=== PATIENT | female | born 1945 | race Caucasian/White ===

== ENCOUNTER → 2016-03-01 | Outpatient (CLI) | payer BC ==
[~2016-03-01] MED LIST: ASCO1CAP3 PO; BIOT1CAP3 PO; CALC-20 PO; CITA20TA9 PO; CLR10 PO; ESTR0.5T3 PO; ETOMIDATE 2 MG/ML 20 ML VIAL IV ONE; GLUC1CAP35 PO; LIDOCAINE HCL 2% 2 ML VIAL (20MG/ML) ONE; MULT-506 PO; PROPOFOL IV EMULSION 10 MG/ML 20 ML VIAL IV ONE; TIMO0.2534 OPR; TRAV0.00 OPB; TRAZ50TA35 PO; TURM1CAP4 PO; VITA400C15 PO
--- NOTE | 2016-03-01 15:53 | DIAGNOSTIC IMAGING REPORT ---
RIGHT HIP UNILATERAL 2 VIEWS CLINICAL HISTORY: Right hip pain COMPARISON: None. DISCUSSION: No acute fractures are visualized. There are no erosive or destructive changes. The joint space appears well-preserved for age. The bones are mildly osteopenic. There are sclerotic densities within the right inferior and superior pubic rami. In the absence of a known primary malignancy, these likely represent bone islands. IMPRESSION: 1. No acute fractures. 2. The joint space appears well-preserved for age Electronically signed by: Surjit Pimentel M.D. 03/01/2016 3:51 PM Dictated Date/Time: 03/01/2016 3:50 PM
== END | disposition home or self-care (01) ==
LOC: C.RAD 15:27
PROVIDERS: ATTEND Family Medicine
DX: M25.551 Pain in right hip (principal); G89.29 Other chronic pain

== ENCOUNTER → 2016-07-04 | Outpatient (CLI) | payer BC ==
[~2016-07-04] MED LIST changes: -ETOMIDATE 2 MG/ML 20 ML VIAL IV ONE; -LIDOCAINE HCL 2% 2 ML VIAL (20MG/ML) ONE; -PROPOFOL IV EMULSION 10 MG/ML 20 ML VIAL IV ONE
--- NOTE | 2016-07-04 15:22 | MAMMOGRAPHY REPORT ---
BILATERAL DIGITAL SCREENING MAMMOGRAM WITH CAD: 07/04/2016 CLINICAL HISTORY: Routine screening. Patient has no complaints. TECHNIQUE: Bilateral CC and MLO views, and right XCCL views were obtained. Current study was also e valuated with a Computer Aided Detection (CAD) system. COMPARISON: Comparison is made to exams dated: 07/01/2015 mammogram, 07/03/2014 mammogram, 06/19/2014 m ammogram, 06/18/2013 mammogram, 06/24/2012 mammogram, and 06/17/2012 mammogram - [facility] nter. BREAST COMPOSITION: There are scattered areas of fibroglandular density in both breasts. FINDINGS: There are scattered stable benign-appearing calcifications in the breasts. Stable asymmet ry in the medial anterior left breast. No new suspicious mass, architectural distortion or cluster of microcalcifications is seen. IMPRESSION: ACR BI-RADS CATEGORY 1: NEGATIVE There is no mammographic evidence of malignancy. A 1 year screening mammogram is recommended. The p atient will receive written notification of the results. Approximately 10% of breast cancers are not detected with mammography. A negative mammographic repor t should not delay biopsy if a clinically suggestive mass is present. Roselyn Vargas M.D. ay/:07/04/2016 14:18:54 Upholsterer Helper: Mira STANLEY)([place])([place]), [facility] letter sent: Normal 1/2 BI-RADS Code: ACR BI-RADS Category 1: Negative
== END | disposition home or self-care (01) ==
LOC: C.MAMM 10:52
PROVIDERS: ATTEND Family Medicine
DX: Z12.31 Encounter for screening mammogram for malignant neoplasm of breast (principal)

== ENCOUNTER → 2017-07-05 | Outpatient (CLI) | payer BC ==
--- NOTE | 2017-07-06 15:17 | MAMMOGRAPHY REPORT ---
BILATERAL DIGITAL SCREENING MAMMOGRAM TOMOSYNTHESIS WITH CAD: 07/05/2017 CLINICAL HISTORY: Routine screening. Patient has no complaints. TECHNIQUE: Breast tomosynthesis in addition to standard 2D mammography was performed. Current study was also evaluated with a Computer Aided Detection (CAD) system. COMPARISON: Comparison is made to exams dated: 07/04/2016 mammogram, 07/01/2015 mammogram, 06/19/2014 ma mmogram, 06/18/2013 mammogram, 06/17/2012 mammogram, and 06/12/2011 mammogram - [facility] er. BREAST COMPOSITION: There are scattered areas of fibroglandular density in both breasts. FINDINGS: No suspicious masses, calcifications, or areas of architectural distortion are noted in ei ther breast. There has been no significant interval change compared to prior exams. Scattered bilater al benign-appearing calcifications are not significantly changed. A few small bilateral circumscribe d benign-appearing masses are noted bilaterally, which are considered benign given the multiplicity a nd bilaterality and likely represent small cysts. IMPRESSION: ACR BI-RADS CATEGORY 2: BENIGN There is no mammographic evidence of malignancy. A 1 year screening mammogram is recommended. The pa tient will receive written notification of the results. Approximately 10% of breast cancers are not detected with mammography. A negative mammographic report should not delay biopsy if a clinically suggestive mass is present. Melanie Angela M.D. ah/:07/05/2017 16:35:19 Radiology Administrator: Sharona Hurt RT(R)(M), [facility] letter sent: Normal 1/2 BI-RADS Code: ACR BI-RADS Category 2: Benign
== END | disposition home or self-care (01) ==
LOC: C.MAMM 12:53
PROVIDERS: ATTEND Family Medicine
DX: Z12.31 Encounter for screening mammogram for malignant neoplasm of breast (principal)

== ENCOUNTER 2019-03-04 06:26 | Observation (INO) ==
--- NOTE | 2019-02-19 16:07 | PAT Medication Instructions ---
Medication Instructions Date of Service February 19, 2019 Home Medications Calcium 600 + D(3) 1 cap PO HS Travatan Z 1 drp OPHTHALMIC (EYE) HS ascorbic acid (vitamin C) [Vitamin C With Leah Hips] 1 tab PO QAM citalopram 20 mg PO HS estradiol 0.5 mg PO HS fluticasone propionate [Flonase Allergy Relief] 2 spray INTRANASAL DAILY PRN glucosamine-chondroitin [Osteo Bi-Flex] 2 tab PO QAM multivitamin 1 tab PO QAM trazodone 50 mg PO HS turmeric root extract 500 mg PO QAM vitamin E 400 unit PO QAM lisinopril 20 mg tablet 20 mg PO QAM meloxicam 7.5 mg tablet 7.5 mg PO DAILY ascorbic acid-collagen [Collagen Plus Vitamin C] 1 cap PO DAILY loratadine 10 mg PO HS timolol 1 drp OPHTHALMIC (EYE) QAM ASK your surgeon for instructions meloxicam 7.5 mg tablet 7.5 mg PO DAILY STOP taking 2 weeks before surgery glucosamine-chondroitin [Osteo Bi-Flex] 2 tab PO QAM turmeric root extract 500 mg PO QAM vitamin E 400 unit PO QAM DO NOT take the morning of surgery ascorbic acid (vitamin C) [Vitamin C With Leah Hips] 1 tab PO QAM multivitamin 1 tab PO QAM lisinopril 20 mg tablet 20 mg PO QAM ascorbic acid-collagen [Collagen Plus Vitamin C] 1 cap PO DAILY Take morning of surgery OTHERWISE NOTHING TO EAT OR DRINK AFTER MIDNIGHT: fluticasone propionate [Flonase Allergy Relief] 2 spray INTRANASAL DAILY PRN (if needed) timolol 1 drp OPHTHALMIC (EYE) QAM Take evening before surgery Calcium 600 + D(3) 1 cap PO HS Travatan Z 1 drp OPHTHALMIC (EYE) HS citalopram 20 mg PO HS estradiol 0.5 mg PO HS fluticasone propionate [Flonase Allergy Relief] 2 spray INTRANASAL DAILY PRN (if needed) trazodone 50 mg PO HS loratadine 10 mg PO HS Other Notes If you have any questions please call us at [phone] or [phone] or or [phone]
--- NOTE | 2019-02-20 09:59 | Anesthesiology Consultation ---
Date of Service February 20, 2019 Assessment & Plan (1) Encounter for pre-operative examination: PT GOES BY "SAMANTHA BRITO" Chart Review Chart Review: Acceptable Risk for Surgery and Patient seen in Pre Admission Testing Teaching & Discussion Instructed NPO after midnight before surgery, except medications with 15 cc of water. Medication instructions provided according to the PAT guidelines. History Surgery Operation Date: 03/04/19 10:40 Proposed Procedures p Right Total Knee Arthroplasty - Claude Clark MD Height/Weight Height: 5 ft 5 in Weight: 87 kg Allergies Allergy/AdvReac Type Severity Reaction Status Date / Time Penicillins Allergy Unknown swelling Verified 02/14/19 14:04 povidone Allergy Unknown blisters Verified 02/14/19 14:04 Medications Home Medications Medication Instructions Recorded Confirmed Last Taken Calcium 600 + D(3) 1 cap PO HS 01/14/18 02/14/19 01/21/18 Travatan Z 1 drp OPHTHALMIC (EYE) HS 01/14/18 02/14/19 01/22/18 ascorbic acid (vitamin C) [Vitamin 1 tab PO QAM 01/14/18 02/14/19 01/21/18 C With Leah Hips] citalopram 20 mg PO HS 01/14/18 02/14/19 01/22/18 estradiol 0.5 mg PO HS 01/14/18 02/14/19 01/22/18 fluticasone propionate [Flonase 2 spray INTRANASAL DAILY PRN 01/14/18 02/14/19 Unknown Allergy Relief] glucosamine-chondroitin [Osteo 2 tab PO QAM 01/14/18 02/14/19 01/21/18 Bi-Flex] multivitamin 1 tab PO QAM 01/14/18 02/14/19 01/21/18 trazodone 50 mg PO HS 01/14/18 02/14/19 01/22/18 turmeric root extract 500 mg PO QAM 01/14/18 02/14/19 01/21/18 vitamin E 400 unit PO QAM 01/14/18 02/14/19 01/21/18 lisinopril 20 mg tablet 20 mg PO QAM 01/16/19 02/14/19 Unknown meloxicam 7.5 mg tablet 7.5 mg PO DAILY 01/16/19 02/14/19 Unknown ascorbic acid-collagen [Collagen 1 cap PO DAILY 02/14/19 02/14/19 Unknown Plus Vitamin C] loratadine 10 mg PO HS 02/14/19 02/14/19 Unknown timolol 1 drp OPHTHALMIC (EYE) QAM 02/14/19 02/14/19 Unknown Past Medical History Medical History (Updated 02/20/19 @ 09:56 by Fermin Lynch) Basal cell carcinoma of face HX OF Bilateral primary osteoarthritis of knee Chronic back pain Depression Fatty liver Glaucoma of both eyes High blood pressure Hyperlipidemia no meds Nausea and vomiting after administration of anesthetic agent ONLY X 1 WITH FIRST BUNIONECTOMY Osteoarthritis Panic attacks Scoliosis Exercise / Class Metabolic Activity II 4-5 Yardwork/Stairs/Walk up hill (Denies CP or SOB with 1 FOS but moving slowly 2/2 knee pain) Past Surgical History Surgical History History of arthroscopy of left knee History of arthroscopy of right knee History of bilateral salpingo-oophorectomy (BSO) History of breast surgery right--removal of benign papiloma History of bunionectomy of left great toe History of bunionectomy of right great toe History of colonoscopy History of dilatation and curettage History of hysterectomy History of tonsillectomy History of tooth extraction Past Anesthesia History No Hx of Anesthesia Complications (other than single episode of PONV) History of PONV No Hx of Motion Sickness and History of PONV (single episode with one bunionectomy) Social History Smoking Status: Former smoker tobacco type: cigarettes Do You Dip or Chew Tobacco: No Smoking End Date: 2005 OR 2006 Hx Alcohol Use: No Hx Substance Use: No substance use type: does not use Review of Systems Pt denies any recent chest pain, shortness of breath, cough, fever or URI. +occasional palpitations Physical Exam Vital Signs BP: 126/79 P: 61bpm SPO2: 97% RA T: 97.7 F R: 16 ENMT Mouth: + dental restorations (many crowns, two implants) and + chipped teeth (tiny chip in lower incisor); no loose teeth Thyromental Distance: < 3.5 Finger Breadths (3) Mallampati Class: I Neck normal visual inspection; neck extension not limited Respiratory normal respiratory effort Auscultation: lungs clear to auscultation bilaterally Cardiovascular Rate/Rhythm: regular rate and regular rhythm Heart Sounds: no murmur Vessels: no carotid bruit Extremities: no edema Testing Laboratory Results 02/20/19 10:09 02/20/19 10:09 PT 9.7 Seconds (9.0-12.0) 02/20/19 10:09 INR 0.9 (0.9-1.1) 02/20/19 10:09 APTT 26.2 Seconds (21.0-31.0) 02/20/19 10:09 Blood Type A Positive 02/20/19 10:09 Antibody Screen NEGATIVE 02/20/19 10:09 Electrocardiogram Date: 02/20/19 Findings: + SB @ (59 with sinus arrhythmia) Otherwise normal EKG. Compared with EKG of 02/06/2006, no significant change was found. Chest X-Ray Date: 02/20/19 Findings: + NAD Borderline cardiomegaly.
--- NOTE | 2019-02-20 10:28 | XRay Report ---
XR chest Pre-admission PA/Lat CLINICAL HISTORY: 73 years-old Female presenting with preoperative assessment. TECHNIQUE: PA and lateral views of the chest were obtained. COMPARISON: None. FINDINGS: Cardiac silhouette borderline enlarged. Lungs and pleural spaces clear. Degenerative changes of the t horacic spine. Dextroscoliosis. Upper abdomen normal. IMPRESSION: 1. Borderline cardiomegaly. No other convincing evidence of acute cardiopulmonary disease. ACT 112: Negative or not required by law. Electronically signed by: Kam Bahena M.D. 02/20/2019 10:27 AM
[2019-02-20 11:16] LABS: Basophils # (auto) 0.03 K/uL (0-0.2); Basophils % (auto) 0.4 %; Eosinophils % (auto) 2.9 %; Hematocrit (blood only) 41.8 % (37-47); Hemoglobin 13.7 g/dL (12.0-16.0); Immature Granulocytes # (auto) 0.01 K/uL (0.00-0.02); Immature Granulocytes % (auto) 0.1 %; Lymphocytes # (auto) 2.19 K/uL (1.2-3.4); Lymphocytes % (auto) 31.3 %; Mean Corpuscular Hemoglobin 29.3 pg (25-34); Mean Corpuscular Hgb Conc 32.8 g/dL (32-36); Mean Corpuscular Volume 89.5 fL (80-100); Mean Platelet Volume 10.5 fL (7.4-10.4); Monocytes # (auto) 0.58 K/uL (0.11-0.59); Monocytes % (auto) 8.3 %; Neutrophils # (auto) 3.99 K/uL (1.4-6.5); Platelet Count 214 K/uL (130-400); RDW Coefficient of Variation 13.9 % (11.5-14.5); RDW Standard Deviation 45.4 fL (36.4-46.3); Red Blood Count 4.67 M/uL (4.2-5.4)
[2019-02-20 11:23] LABS: BUN Creatinine Ratio 20.8 (10-20); Calcium 9.2 mg/dl (8.5-10.1); Creatinine Clr Calc Pharmacy 85.2 ml/min; Est GFR (Non-African American) 88.9; Potassium 4.1 mmol/L (3.5-5.1)
[2019-02-20 11:31] LABS: INR 0.9 (0.9-1.1); Partial Thromboplastin Time 26.2 Seconds (21.0-31.0); Prothrombin Time 9.7 Seconds (9.0-12.0)
--- NOTE | 2019-02-20 23:41 | Electrocardiogram Report ---
Test Reason : Blood Pressure : / mmHG Vent. Rate : 059 BPM Atrial Rate : 059 BPM P-R Int : 196 ms QRS Dur : 084 ms QT Int : 418 ms P-R-T Axes : 077 031 072 degrees QTc Int : 413 ms Sinus bradycardia with sinus arrhythmia Otherwise normal ECG When compared with ECG of 06-FEB-2006 14:09, No significant change was found Confirmed by Babar Clifton ([id number]) on 02/20/2019 11:41:21 PM Referred By: Claude Clark Confirmed By:Babar Clifton
--- NOTE | 2019-03-01 16:09 | History and Physical Report ---
DATE OF ADMISSION: 03/04/2019 CHIEF COMPLAINT: Bilateral knee pain and discomfort, right side greater than left. HISTORY OF PRESENT ILLNESS: The patient is a 73-year-old female who has been a long-term patient of mine that I have been treating for knee pain and discomfort for the past 5 years. The shots that she has gotten do not help anymore. She has had viscosupplementation, which did not help at all. Pain is mostly on the medial side of both knees, right side worse than left. She has been through extensive medical management as well with minimal relief lately. She is limited in her walking ability due to her pain. If she is active, she pays for it for the next couple days. She would like to proceed with a right knee replacement. PAST MEDICAL HISTORY: 1. Hypertension. 2. Elevated cholesterol. 3. Anxiety/depression. 4. Arthritis. 5. Lumbar spondylosis. 6. Obesity with BMI of 32. PAST SURGICAL HISTORY: Includes: 1. Bunion surgery bilaterally. 2. Bilateral knee arthroscopies, one done in 2005 and one in 2006. 3. Hysterectomy. 4. Oophorectomy. ALLERGIES: PENICILLIN WHICH CAUSED SOME SWELLING, BUT NO BREATHING PROBLEMS. BETADINE, WHICH CAUSES BLISTERS. CURRENT MEDICINES: Include: 1. Multivitamin. 2. Vitamin E. 3. Vitamin C. 4. Bi-Flex. 5. Turmeric. 6. Caltrate. 7. Trazodone. 8. Celexa. 9. Biotin. 10. Loratadine. 11. Estradiol. 12. Timolol eye drops. 13. Travatan. 14. Fluticasone. 15. Mobic. 16. Lisinopril. SOCIAL HISTORY: A 73-year-old female. She is . Does not smoke. Does not drink. FAMILY HISTORY: Noncontributory. REVIEW OF HISTORY: Negative for diabetes, neurologic problems, vascular problems or bleeding disorders. Denies any chest pain or shortness of breath. No history of DVT or PE. No known bleeding problems. PHYSICAL EXAMINATION GENERAL: Shows a pleasant, middle-aged female. Looks to be in pretty good health. HEENT: Benign. NECK: Supple, no lymphadenopathy. LUNGS: Clear to auscultation. HEART: Has a regular rate and rhythm. ABDOMEN: Soft, nontender, nondistended. EXTREMITIES: Grossly neurovascularly intact except as follows: Examination of the right knee reveals the patient walks with a slight bit of a limp. She has got a varus alignment to her knee. She has got bony hypertrophy medially. She does have a varus thrust with weightbearing. Small knee effusion. Range of motion about 5 degrees short of full extension to 120 degrees of flexion. There is no instability. No pain with hip motion. X-RAYS: X-rays of the right knee revealed advanced right knee DJD. She has complete loss of her medial joint space. She has subchondral sclerosis. She has got some lateral compartment disease as well. She has patellofemoral disease. ASSESSMENT: A 73-year-old female with advanced bilateral knee tricompartment degenerative joint disease, right side more symptomatic than the left. She has failed conservative treatment and would like to have her right knee replaced. PLAN: We will take her to the operating room and do right total knee replacement. The risks and benefits of this procedure were explained to the patient including but not limited to DVT, PE, , infection, neurological injury, vascular injury, bleeding problem, pain, limited range of motion, stiffness, failure to relieve her symptoms, incomplete relief of symptoms, need for further surgery in the future, fracture, leg length inequality, nerve palsy, incomplete relief of symptoms, need for blood transfusion, etc. The patient understands and desires to proceed. Informed consent was obtained. We did talk about holding her lisinopril the morning of surgery and Mobic 10 days preop. As far as discharge planning, she has a friend who is going to come and stay with her.
[~2019-03-04 06:26] MED LIST changes: +ACETAMINOPHEN 500 MG TAB PO SCH; -ASCO1CAP3 PO; -BIOT1CAP3 PO; +BUPIVACAINE LIPOSOME/PF 266 MG, BUPIVACAINE/EPINEPHRINE 50 ML, SODIUM CHLORIDE 0.9% 30 ... INFIL SCH; -CALC-20 PO; +CEFAZOLIN 2000MG 2,000 MG/15 ML SYR IV SCH; -CITA20TA9 PO; -CLR10 PO; -ESTR0.5T3 PO; +FAMOTIDINE 20 MG TAB PO SCH; +GABAPENTIN 300 MG CAP PO SCH; -GLUC1CAP35 PO; +LR 500ML BOLUS, THEN 15ML/HR IV SCH; +LR 60ML/HR IV SCH; +METOCLOPRAMIDE HCL 10 MG TABLET PO SCH; -MULT-506 PO; -TIMO0.2534 OPR; +TRANEXAMIC ACID 1,000 MG **IV Intra-op IV SCH; -TRAV0.00 OPB; -TRAZ50TA35 PO; -TURM1CAP4 PO; -VITA400C15 PO
[2019-03-04] MEDS ORDERED: BUPIVACAINE/EPINEPHRINE 0.25% 1:200,000 30 ML VIAL ONE ×2 (06:37→08:50)
[2019-03-04] MEDS ORDERED: BUPIVACAINE 0.5 % 5 MG/1 ML PF 10ML VIAL ONE (06:37)
--- NOTE | 2019-03-04 06:55 | History & Physical Bridge Note ---
Date of Service March 04, 2019 History & Physical Bridge Note I have examined the patient, reviewed the History & Physical and in the interval since the performance of the History & Physical I have noted the following changes of clinical significance: no changes noted
[2019-03-04] MEDS ORDERED: MIDAZOLAM HCL 1 MG/ML 2ML VIAL ONE (07:30)
[2019-03-04] MEDS ORDERED: fentaNYL citrate 100 MCG/2 ML VIAL ONE (07:31)
[2019-03-04] MEDS ORDERED: fentaNYL citrate 100 MCG/2 ML VIAL IV PRN (08:19)
[2019-03-04] MEDS ORDERED: HYDROmorphone INJ 2 MG/ML SYR/VIAL IV PRN (08:19)
[2019-03-04] MEDS ORDERED: ATROPINE SULFATE 0.1 MG/ML 10ML SYR IV PRN (08:19)
[2019-03-04] MEDS ORDERED: ONDANSETRON INJ 2 MG/ML 2 ML VIAL IV PRN ×2 (08:19→12:05)
[2019-03-04] MEDS ORDERED: ePHEDrine sulfate 50 MG/ML AMP IV PRN (08:19)
[2019-03-04] MEDS ORDERED: BACITRACIN INJ 50,000 UNIT VIAL ONE (08:50)
[2019-03-04] MEDS ORDERED: BUPIVACAINE LIPOSOME 1.3% 266 MG/20 ML VIAL ONE (08:50)
[2019-03-04] MEDS ORDERED: SODIUM CHLORIDE 0.9% PF 50 ML VIAL ONE (08:50)
[2019-03-04] MEDS ORDERED: PROPOFOL IV EMULSION 10 MG/ML 20 ML VIAL IV ONE (09:19)
--- NOTE | 2019-03-04 10:41 | Post Operative Brief Note ---
PG Immediate Post Op with CF Date of Surgery March 04, 2019 Pre & Post Diagnosis Operation Date: 03/04/19 08:50 Pre-Op Diagnosis: Right Knee Advanced Degenerative Joint Disease Post-Op Diagnosis: Right Knee Advanced Degenerative Joint Disease I identified the patient and participated in the time-out.: Yes Procedure Operation Date: 03/04/19 08:50 Actual Procedures p Right Total Knee Arthroplasty(Right) - Claude Clark MD Surgeon Claude Clark MD Manager Welding Shaniqua, PAC Estimated Blood Loss 50 Findings Consistent with Post-Op Diagnosis Fluids 800 cc Specimens Specimen Description: A. Right Knee Bone and Tissue Drains Galindo Catheter (A 16 Bulgarian galindo catheter was inserted by [facility] [place], without difficulty, clear yellow urine obtained, output to be monitored by Anesthesia.) Anesthesia Type Spinal MAC Complications none Disposition Accompanied Patient To Recovery: No Disposition: Recovery Room
--- NOTE | 2019-03-04 10:54 | Operative Report ---
Post Operative Report Pre & Post Diagnosis Operation Date: 03/04/19 08:50 Pre-Op Diagnosis: Right Knee Advanced Degenerative Joint Disease Post-Op Diagnosis: Right Knee Advanced Degenerative Joint Disease I identified the patient and participated in the time-out.: Yes Procedure Operation Date: 03/04/19 08:50 Actual Procedures p Right Total Knee Arthroplasty(Right) - Claude Clark MD Surgeon Claude Clark MD Radiologic Technologist Chief Shaniqua, PAC Estimated Blood Loss 50 Findings Consistent with Post-Op Diagnosis Operative findings revealed advanced right knee DJD with extensive grade 4 [id number] disease of the medial femoral condyle medial tibial plateau. She had a fixed varus deformity to her knee with a moderate-sized joint effusion. She had osteophytes medially. The patellofemoral joint and the lateral compartment did show some age-related changes. Fluids 800 cc Specimens Right knee sent for pathology. Drains None. Anesthesia Type Spinal MAC Complications none Disposition Accompanied Patient To Recovery: Yes Indications Patient is a 73-year-old female is had a fairly long history of bilateral knee pain and discomfort. She had bilateral knee scopes done over 12 years ago which gave some temporary relief. Over the past several years she is developed increased pain discomfort in both knees. Is been through extensive conservative treatment. The right knee was bothering more than left. X-rays show advanced DJD. She elected proceed with total knee arthroplasty. Description of Procedure Operative implants consist of: 1. Biomet Vanguard size 65 right posterior by femoral component. 2. Biomet size 71 tibial tray. 3. 10 mm posterior stabilized polyethylene insert. 4. 28 x 8 all poly-patella. Operative procedure: The patient was taken to the operating room identified placed in the operative supine position protectors were properly padded. IV antibiotics were 5 by anesthesia team. Spinal anesthetic and abductor canal block had been provided in the holding area. Feng catheter was placed in sterile fashion. Right thigh tourniquet was then placed in the right lower extremities and prepped and draped in usual sterile fashion. Right leg was elevated and exsanguinated with use of an Esmarch and turns placed at 300 mmHg. An anterior approach to the right knee was then performed the longitudinal incision centered over the patella. Sharp dissection was carried through subcutaneous tissue down below the extensor mechanism. A medial parapatellar arthrotomy incision was made. Some subperiosteal dissection was carried out medially for the fat pad was resected from the patella tendon. The lateral patellofemoral ligament was released. Patella was subluxated laterally and the knee was flexed with the osteophytes taken off the distal femur. The ACL and PCL were then released from the distal femur and the tibia subluxated anteriorly. The external tibial alignment jig was then placed in the interface of the tibia and adjusted 14 mm medially. Proximal tibial cut was made to move about a millimeter or 2 of bone from the most efficient aspect the medial tibial plateau. Tibia sized to size 71. Some osteophytes were taken off medial and posterior medially. Attention drawn to the femur. The distal femur done with a sharp drill bit intramedullary canal was suction. A right 5 degree valgus cutting guide was placed. This femoral cutting block was pinned in place but distal femoral cut was made to take an additional 3 mm bone off distal femur. The femur was then sized to a size 65. We did downsize this an entire size due to the narrow medial and lateral dimensions of the femur. AP cutting block was then pinned parallel to the epicondylar axis which was 4 degrees of external rotation with anterior cut, anterior chamfer, posterior cut, posterior chamfer cuts were made. Box cutting guide was placed in just slight lateral box cut was made. The knee was flexed. The remnants of the medial lateral menisci were excised. The osteophytes were taken off the posterior aspect the femur. A trial femoral component was placed per the tibial tray was pinned in maximum external rotation and the drill and stem punch we used to create defect in proximal and 2 for the tibial tray. Knee was then trialed and the 10 mm insert fit most appropriately. Attention drawn to the patella. The patella was cleaned of all soft tissues. Patella thickness measured 23 mm in thickness was cut down to 13. Sized to a size 28 patella. Locals were drilled for the 28 patella. Lateral osteophytes removed. Patella button was placed. Knee was taken through range of motion the patella tracked nicely with a no thumbs test. Attention drawn to place the permanent components. All trial components were removed. Bone plug was placed in the disc femur limit blood loss. A double batch Palacos G cement was mixed. [employer] size 65 right posterior by femoral component, size 71 tibial tray, a 10 mm posterior box polyethylene insert, and a 28 x 8 all poly-patella were then cemented into position. The knee was brought under full extension until cement hardened. Final cement check was then performed. Pericapsular tissues were injected with total 100 cc of combination of 20 cc of Exparel, 30 cc normal saline, 50 cc of quarter percent Marcaine with epinephrine. Patient did receive 1 g of tranexamic acid acid. The tourniquet was then let down for tourniquet time 50 minutes. Hemostasis assured use electrocautery. The wounds once again irrigated. Extensor mechanism closed with combination 1 PDS suture #1 Vicryl suture in [id number] fashion. Extensor mechanism checked found to be intact the subcutaneous tissue then closed with 2 Dexon suture buried fashion skin was closed skin shaina. Leg was then cleaned dried a sterile dressing composed of Xeroform, 4 x 4's, sterile cast padding Nimesh bandage were applied. Patient transferred to the recovery room in stable condition. Patient tolerated procedure well and there were no complications. I attest to the content of the Intraoperative Record and any orders documented therein. Any exceptions are noted below.
--- NOTE | 2019-03-04 10:57 | Anesthesiology Progress Note ---
Date of Service March 04, 2019 Anesthesia Post Procedure Pain Intensity Right Knee: Pain Intensity: 0 Transfer of Care Handoff Completed per policy Notes Mental Status: alert / awake / arousable and participated in evaluation Patient Amnestic to Procedure: Yes Nausea / Vomiting: adequately controlled Pain: adequately controlled Airway Patency, RR, SpO2: stable & adequate BP & HR: stable & adequate Hydration State: stable & adequate Neuraxial Anesthesia: was administered and sensory block is resolving Anesthetic Complications: no major complications apparent and Pt Satisfied with anesthetic care
--- NOTE | 2019-03-04 11:16 | XRay Report ---
RIGHT KNEE 2 VIEWS History: Right total knee arthroplasty. Degenerative arthritis. Postop. FINDINGS: The patient is status post a right total knee arthroplasty. The hardware is intact. No frac ture or dislocation. Skin shaina are in place. IMPRESSION: Right total knee arthroplasty. No evidence for hardware complication. ACT 112: Negative or not required by law. Electronically signed by: Pedro Forrester M.D. 03/04/2019 11:14 AM
[2019-03-04] MEDS ORDERED: MAGNESIUM HYDROXIDE SUSP 30 ML UDC PO PRN (12:05)
[2019-03-04] MEDS ORDERED: ALUMINUM/MAGNESIUM SUSP 30 ML UDC PO PRN (12:05)
[2019-03-04] MEDS ORDERED: FLUTICASONE PROPIONATE NA SPR 16 GM BTL NAE PRN (12:05)
[2019-03-04] MEDS ORDERED: bisacodyL 10 MG SUPP PR PRN (12:05)
[2019-03-04] MEDS ORDERED: NALOXONE HCL 0.4 MG/1 ML VIAL/CARP IV PRN (12:05)
[2019-03-04] MEDS ORDERED: HYDROmorphone INJ 0.5 MG/0.5 ML SYR IV PRN (12:05)
[2019-03-04] MEDS ORDERED: METOCLOPRAMIDE HCL INJ 5 MG/ML 2 ML VIAL IV PRN (12:05)
[2019-03-04] MEDS: SODIUM CHLORIDE 0.9% 1000ML 1,000 ML IV SCH ×2 (13:24→22:43)
[2019-03-04] MEDS: ACETAMINOPHEN 500 MG TAB PO SCH ×2 (13:24→20:55)
[2019-03-04] MEDS: KETOROLAC TROMETHAMINE 15 MG/ML VIAL IV SCH ×3 (13:25→23:54)
[2019-03-04] MEDS: HYDROmorphone HCL 2 MG TAB PO PRN ×3 (14:35→22:34)
[2019-03-04] MEDS: lisinopriL 20 MG TAB PO SCH (15:29)
[2019-03-04] MEDS: CEFAZOLIN 2000MG 2,000 MG/15 ML SYR IV SCH ×2 (16:25→23:54)
[2019-03-04] MEDS ORDERED: TRANEXAMIC ACID / 0.7% NACL 1,000 MG/100 ML BAG IV SCH (17:00)
[2019-03-04] MEDS: ASCORBIC ACID 500 MG TAB PO SCH (17:33)
[2019-03-04] MEDS: FERROUS GLUCONATE 324 MG TAB PO SCH (17:33)
[2019-03-04] MEDS: TRAVOPROST Z 0.004% OPH SOLN 2.5 ML BTL OPB SCH (20:52)
[2019-03-04] MEDS: DOCUSATE SODIUM 100 MG CAP PO SCH (20:54)
[2019-03-04] MEDS: CALCIUM 600MG + VIT D 400 IU TAB PO SCH (20:55)
[2019-03-04] MEDS: TRAZODONE HCL 50 MG TAB PO SCH (20:56)
[2019-03-04] MEDS: LORATADINE 10 MG TAB PO SCH (20:56)
[2019-03-04] MEDS: CITALOPRAM 20 MG TAB PO SCH (20:56)
[2019-03-04] MEDS: estradioL 1 MG TAB PO SCH (20:57)
[2019-03-04] MEDS: ASPIRIN 81 MG ECTAB PO SCH (20:57)
[2019-03-04] MEDS: TAPENTADOL HCL ER 50 MG TABCR PO SCH (20:58)
[2019-03-04] MEDS: SENNA 8.6 MG TAB PO SCH (20:59)
[2019-03-05] MEDS: HYDROmorphone HCL 2 MG TAB PO PRN ×3 (05:40→16:13)
[2019-03-05] MEDS: ACETAMINOPHEN 500 MG TAB PO SCH ×3 (05:42→21:04)
[2019-03-05 05:44] LABS: Hematocrit (blood only) 36.2 % (37-47); Hemoglobin 11.8 g/dL (12.0-16.0); Mean Corpuscular Hemoglobin 29.2 pg (25-34); Mean Corpuscular Hgb Conc 32.6 g/dL (32-36); Mean Corpuscular Volume 89.6 fL (80-100); Mean Platelet Volume 10.1 fL (7.4-10.4); Platelet Count 185 K/uL (130-400); RDW Coefficient of Variation 13.6 % (11.5-14.5); RDW Standard Deviation 44.6 fL (36.4-46.3); Red Blood Count 4.04 M/uL (4.2-5.4); White Blood Count 8.35 K/uL (4.8-10.8)
[2019-03-05 06:13] LABS: BUN Creatinine Ratio 16.8 (10-20); Calcium 8.7 mg/dl (8.5-10.1); Creatinine Clr Calc Pharmacy 85.2 ml/min; Est GFR (Non-African American) 88.9; Potassium 4.1 mmol/L (3.5-5.1)
[2019-03-05] MEDS: KETOROLAC TROMETHAMINE 15 MG/ML VIAL IV SCH ×3 (06:21→19:16)
[2019-03-05] MEDS ORDERED: dexAMETHasone 4 MG TAB PO SCH (08:00)
--- NOTE | 2019-03-05 08:17 | Anesthesiology Progress Note ---
Date of Service March 05, 2019 Anesthesia Post Procedure Vital Signs Vital Signs: Temp Pulse Pulse Pulse Resp BP Pulse Ox 03/05/19 08:02 36.8 C 72 16 106/76 96 03/05/19 03:30 36.6 C 65 16 103/67 95 03/05/19 00:00 37 C 79 16 134/63 94 03/04/19 20:06 36.8 C 73 17 117/72 95 03/04/19 15:22 36.8 C 68 16 184/96 H 97 03/04/19 14:43 36.5 C 64 16 155/81 H 95 03/04/19 13:45 68 16 145/76 H 95 03/04/19 12:53 64 18 116/70 95 03/04/19 12:35 63 16 127/77 98 03/04/19 11:45 36.3 C L 61 16 106/74 100 03/04/19 11:25 60 18 127/66 95 03/04/19 11:15 36.4 C L 60 20 119/68 99 03/04/19 11:05 60 18 129/67 100 03/04/19 10:55 60 16 122/64 100 03/04/19 10:46 36.3 C L 59 L 18 139/72 100 Pain Intensity Right Knee: Pain Intensity: 4 Notes Mental Status: alert / awake / arousable Patient Amnestic to Procedure: No Nausea / Vomiting: adequately controlled Pain: adequately controlled Airway Patency, RR, SpO2: stable & adequate BP & HR: stable & adequate Hydration State: stable & adequate Neuraxial Anesthesia: was administered and sensory block resolved Anesthetic Complications: no major complications apparent Notes: pt stated that she was awake during the whole procedure;
[2019-03-05] MEDS: FERROUS GLUCONATE 324 MG TAB PO SCH ×2 (08:30→17:35)
[2019-03-05] MEDS: ASCORBIC ACID 500 MG TAB PO SCH ×2 (08:30→17:35)
[2019-03-05] MEDS: MULTIVITAMIN TAB PO SCH (08:31)
[2019-03-05] MEDS: ASPIRIN 81 MG ECTAB PO SCH ×2 (08:31→21:02)
[2019-03-05] MEDS: DOCUSATE SODIUM 100 MG CAP PO SCH ×2 (08:31→21:01)
[2019-03-05] MEDS: TOCOPHERYL, DL-ALPHA 400 UNITS CAP PO SCH (08:32)
[2019-03-05] MEDS: TIMOLOL MALEATE 0.5% OP SOLN 5 ML BTL OPR SCH (08:33)
[2019-03-05] MEDS: TAPENTADOL HCL ER 50 MG TABCR PO SCH ×2 (08:38→21:09)
[2019-03-05] MEDS ORDERED: MULTIVITAMIN TAB PO SCH (09:00)
[2019-03-05] MEDS ORDERED: ASCORBIC ACID PO SCH (09:00)
[2019-03-05] MEDS ORDERED: ASCORBIC ACID COLLAGEN PO SCH (09:00)
[2019-03-05] MEDS: lisinopriL 20 MG TAB PO SCH (09:10)
--- NOTE | 2019-03-05 11:02 | Progress Note ---
DATE: 03/05/2019 SUBJECTIVE: A 73-year-old female postop day 1 from a right knee replacement. She is doing okay, but having a significant amount of pain. No chest pain or shortness of breath. Not feeling dizzy or lightheaded currently, but has had some dizziness when she gets up and out of bed. OBJECTIVE: VITAL SIGNS: Temperature 36.8. Vital signs stable. GENERAL: Shows a pleasant, middle-aged female. She is lying in bed, looks pretty comfortable currently. EXTREMITIES: Examination of the right leg reveals the leg to be well aligned. Dressing is clean, dry and intact. She can dorsiflex and plantarflex her foot appropriately. She is neurologically intact. LABORATORY DATA: Hemoglobin 11.8. Hematocrit 36.2. Electrolytes are stable. ASSESSMENT: A 73-year-old white female postop day 1 from right knee replacement, doing reasonably well. Having a reasonable amount of pain, but nothing out of the ordinary. She has had some dizziness when getting up, which also is not too unusual. No cardiac symptoms. PLAN: 1. DVT prophylaxis including thigh-high TEDs, SCDs, and aspirin twice a day. 2. PT/OT. Weight bear as tolerated. Right total knee protocol. 3. Pain control, doing okay with current pain regimen. 4. Disposition: She is planning to be discharged home and do outpatient therapy once medically stable and adequately recovered.
[2019-03-05] MEDS: estradioL 1 MG TAB PO SCH (21:01)
[2019-03-05] MEDS: CITALOPRAM 20 MG TAB PO SCH (21:01)
[2019-03-05] MEDS: SENNA 8.6 MG TAB PO SCH (21:01)
[2019-03-05] MEDS: TRAZODONE HCL 50 MG TAB PO SCH (21:02)
[2019-03-05] MEDS: LORATADINE 10 MG TAB PO SCH (21:03)
[2019-03-05] MEDS: CALCIUM 600MG + VIT D 400 IU TAB PO SCH (21:04)
[2019-03-05] MEDS: TRAVOPROST Z 0.004% OPH SOLN 2.5 ML BTL OPB SCH (21:10)
[2019-03-06] MEDS: KETOROLAC TROMETHAMINE 15 MG/ML VIAL IV SCH ×2 (00:22→06:42)
[2019-03-06] MEDS: ACETAMINOPHEN 500 MG TAB PO SCH (05:28)
[2019-03-06] MEDS: TIMOLOL MALEATE 0.5% OP SOLN 5 ML BTL OPR SCH (07:32)
[2019-03-06] MEDS: ASPIRIN 81 MG ECTAB PO SCH (09:06)
[2019-03-06] MEDS: TOCOPHERYL, DL-ALPHA 400 UNITS CAP PO SCH (09:07)
[2019-03-06] MEDS: FERROUS GLUCONATE 324 MG TAB PO SCH (09:07)
[2019-03-06] MEDS: lisinopriL 20 MG TAB PO SCH (09:07)
[2019-03-06] MEDS: ASCORBIC ACID 500 MG TAB PO SCH (09:07)
[2019-03-06] MEDS: MULTIVITAMIN TAB PO SCH (09:07)
[2019-03-06] MEDS: DOCUSATE SODIUM 100 MG CAP PO SCH (09:07)
[2019-03-06] MEDS: TAPENTADOL HCL ER 50 MG TABCR PO SCH (09:12)
--- NOTE | 2019-03-06 09:50 | Progress Note ---
DATE: 03/06/2019 SUBJECTIVE: A 73-year-old white female postop day 2 from a right knee replacement. She is doing quite a bit better today. Pain is improved. No chest pain or shortness of breath. Not feeling dizzy or lightheaded. OBJECTIVE: VITAL SIGNS: Temperature 36.8. Vital signs stable. GENERAL: Shows a pleasant, middle-aged female. She is lying in bed, looks pretty comfortable. EXTREMITIES: Examination of the right leg reveals the leg to be well aligned. Dressing is clean, dry and intact. Calf is soft and supple. She can dorsiflex and plantarflex her foot appropriately. She is neurologically intact. ASSESSMENT: A 73-year-old white female postop day 2 from right knee replacement, doing pretty well. Pain is controlled. She is neurologically intact. PLAN: 1. DVT prophylaxis including thigh-high TEDs, SCDs, and aspirin twice a day. 2. PT/OT. Weight bear as tolerated. Right total knee protocol. 3. Pain control, doing well with current pain regimen. 4. Disposition: Plan to discharge to home later on today if does okay in therapy.
--- NOTE | 2019-03-07 16:49 | Discharge Summary ---
ADMITTING PHYSICIAN AND SURGEON: Dr. Claude Clark. ADMITTING DIAGNOSIS: Right knee degenerative joint disease. SURGERY PERFORMED: Right total knee arthroplasty. SECONDARY DIAGNOSES: Hypertension, elevated cholesterol, anxiety, depression, arthritis, lumbar spondylosis, obesity. CONSULTS: None obtained. HISTORY AND PHYSICAL EXAMINATION: Well-documented in the patient's chart. HOSPITAL COURSE: The patient was admitted on 03/04/2019, underwent a total knee arthroplasty, tolerated the procedure well. There were no complications. He was transferred to the PACU postoperatively and later to the orthopedic floor for further care. She was given Ancef for antibiotic prophylaxis, YAMILA stockings, SCDs and aspirin for DVT prophylaxis. Hemoglobin, hematocrit and vital signs were monitored during her hospital stay and remained stable. She did not require any blood transfusions. There were no complications. By postoperative day 2, she was tolerating a regular diet, pain was controlled with oral pain medicine. She was participating in physical therapy. On postop day 2, she was discharged home. She was given printed discharge instructions as well as new prescriptions for extra strength Tylenol, aspirin and Dilaudid and Zofran. Continue her home medicines. Continue physical therapy, weightbearing as tolerated, YMAILA stockings. Follow up approximately 2 weeks postoperatively or sooner if there are any problems or concerns.
== END 2019-03-06 13:50 | disposition home or self-care (01) ==
LOC: ASU 06:26 → INTOOBSV 10:46 → 3E 10:46

== ENCOUNTER 2022-02-21 05:46 | Observation (INO) ==
--- NOTE | 2022-01-13 10:43 | PAT Medication Instructions ---
Medication Instructions Date of Service January 13, 2022 Home Medications Medication Instructions Recorded clindamycin HCl 300 mg capsule 600 mg PO .COMPLEX PROPHYLAXIS FOR 11/18/19 DENTAL APPT #2 caps ascorbic acid (vitamin C) 1,000 mg tablet (Vitamin C With Leah Hips) 500 mg PO QAM calcium carbonate 600 mg-vitamin D3 5 mcg (200 unit) capsule (Calcium 600 + D(3)) 1 cap PO HS citalopram 20 mg tablet 20 mg PO HS estradiol 1 mg tablet 0.5 mg PO HS fluticasone propionate 50 mcg/actuation nasal spray,suspension (Flonase Allergy Relief) 2 spray intranasal DAILY PRN Allergy Symptoms glucosamine-chondroitin 250 mg-200 mg tablet (Osteo Bi-Flex) 2 tab PO QAM multivitamin 1 tab PO QAM travoprost 0.004 % eye drops (Travatan Z) 1 drp OPB HS trazodone 50 mg tablet 50 mg PO HS turmeric root extract 500 mg capsule 1,000 mg PO QAM vitamin E 268 mg (400 unit) capsule 400 unit PO QAM lisinopril 20 mg tablet 20 mg PO QAM meloxicam 7.5 mg tablet (Mobic) 7.5 mg PO HS loratadine 10 mg tablet 10 mg PO HS timolol 0.5 % eye drops 1 drp OPR QAM clindamycin HCl 300 mg capsule 600 mg PO .COMPLEX PROPHYLAXIS FOR DENTAL APPT Continue as directed clindamycin HCl 300 mg capsule 600 mg PO .COMPLEX PROPHYLAXIS FOR DENTAL APPT ASK your surgeon for instructions meloxicam 7.5 mg tablet (Mobic) 7.5 mg PO HS ASK your prescriber and surgeon estradiol 1 mg tablet 0.5 mg PO HS STOP taking 2 weeks before surgery glucosamine-chondroitin 250 mg-200 mg tablet (Osteo Bi-Flex) 2 tab PO QAM turmeric root extract 500 mg capsule 1,000 mg PO QAM vitamin E 268 mg (400 unit) capsule 400 unit PO QAM DO NOT take the morning of surgery ascorbic acid (vitamin C) 1,000 mg tablet (Vitamin C With Leah Hips) 500 mg PO QAM multivitamin 1 tab PO QAM lisinopril 20 mg tablet 20 mg PO QAM Take morning of surgery OTHERWISE NOTHING TO EAT OR DRINK AFTER MIDNIGHT: fluticasone propionate 50 mcg/actuation nasal spray,suspension (Flonase Allergy Relief) 2 spray intranasal DAILY PRN Allergy Symptoms (if needed) timolol 0.5 % eye drops 1 drp OPR QAM Take evening before surgery calcium carbonate 600 mg-vitamin D3 5 mcg (200 unit) capsule (Calcium 600 + D(3)) 1 cap PO HS citalopram 20 mg tablet 20 mg PO HS travoprost 0.004 % eye drops (Travatan Z) 1 drp OPB HS trazodone 50 mg tablet 50 mg PO HS loratadine 10 mg tablet 10 mg PO HS Other Notes If you have any questions please call us at [phone] or [phone] or [phone] or [phone]
--- NOTE | 2022-01-16 12:19 | Anesthesiology Consultation ---
Date of Service January 16, 2022 Assessment & Plan (1) Encounter for pre-operative examination: - COVID screening: Per assessment on 01/12: No known COVID-19 positive contacts or current COVID-19 related symptoms. Travel screen negative. Patient vaccinated. At surgeon discretion if preop Covid testing being done. - Outpatient joint assessment: Pt currently scheduled for inpatient pathway. If surgeon requests review for outpatient joint pathway, patient is an acceptable candidate for outpatient joint program from anesthesia standpoint pending surgeon's office assessment of pt motivation/strong home support/completion of same day joint program preop requirements. Chart Review Chart Review: Acceptable Risk for Surgery and Patient seen in Pre Admission Testing Teaching & Discussion Pre-Anesthesia Teaching/Discussion Notes: Instructed NPO after midnight before surgery,except medications with 15 cc of water. Medication instructions provided according to the PAT guidelines. History Surgery Operation Date: 02/21/22 07:00 Proposed Procedures p Left Total Knee Arthroplasty - Claude Clark MD Height/Weight Height: 5 ft 5 in Weight: 87.9 kg Allergies Allergy/AdvReac Type Severity Reaction Status Date / Time adhesive tape Allergy Mild Rash Verified 01/12/22 14:30 Penicillins Allergy Unknown swelling Verified 01/12/22 14:21 povidone Allergy Unknown blisters Verified 01/16/22 12:27 (with bunionectomy) Medications Home Medications Medication Instructions Recorded Confirmed Last Taken ascorbic acid (vitamin C) 1,000 mg 500 mg PO QAM 01/14/18 01/12/22 03/14/21 tablet (Vitamin C With Leah Hips) calcium carbonate 600 mg-vitamin 1 cap PO HS 01/14/18 01/12/22 03/14/21 D3 5 mcg (200 unit) capsule (Calcium 600 + D(3)) citalopram 20 mg tablet 20 mg PO HS 01/14/18 01/12/22 03/15/21 estradiol 1 mg tablet 0.5 mg PO HS 01/14/18 01/12/22 03/15/21 fluticasone propionate 50 2 spray intranasal DAILY PRN 01/14/18 01/12/22 03/15/21 mcg/actuation nasal Allergy Symptoms spray,suspension (Flonase Allergy Relief) glucosamine-chondroitin 250 mg-200 2 tab PO QAM 01/14/18 01/12/22 03/14/21 mg tablet (Osteo Bi-Flex) multivitamin 1 tab PO QAM 01/14/18 01/12/22 03/14/21 travoprost 0.004 % eye drops 1 drp OPB HS 01/14/18 01/12/22 03/15/21 (Travatan Z) trazodone 50 mg tablet 50 mg PO HS 01/14/18 01/12/22 03/15/21 turmeric root extract 500 mg 1,000 mg PO QAM 01/14/18 01/12/22 03/14/21 capsule vitamin E 268 mg (400 unit) capsule 400 unit PO QAM 01/14/18 01/12/22 03/14/21 lisinopril 20 mg tablet 20 mg PO QAM 01/16/19 01/12/22 03/15/21 meloxicam 7.5 mg tablet (Mobic) 7.5 mg PO HS 01/16/19 01/12/22 03/14/21 loratadine 10 mg tablet 10 mg PO HS 02/14/19 01/12/22 03/15/21 timolol 0.5 % eye drops 1 drp OPR QAM 02/14/19 01/12/22 03/15/21 clindamycin HCl 300 mg capsule 600 mg PO .COMPLEX PROPHYLAXIS FOR 11/18/19 01/12/22 Unknown DENTAL APPT #2 caps Past Medical History Medical History Basal cell carcinoma of face Hx Bilateral primary osteoarthritis of knee Chronic back pain Depression Fatty liver Glaucoma of both eyes High blood pressure History of anesthesia reaction Awareness ("could hear everything") during Right TKA History of palpitations 30+ years ago s/p unremarkable holter per pt Hyperlipidemia Osteoarthritis Panic attacks Scoliosis Trochanteric bursitis, right hip Exercise / Class Metabolic Activity II 4-5 Yardwork/Stairs/Walk up hill Past Family History Family History Other No family history of adverse response to anesthesia Past Surgical History Surgical History History of arthroscopy of left knee History of arthroscopy of right knee History of bilateral salpingo-oophorectomy (BSO) History of breast surgery right--removal of benign papiloma History of bunionectomy of left great toe History of bunionectomy of right great toe History of colonoscopy History of dilatation and curettage History of hysterectomy History of removal of skin mole History of tonsillectomy History of tooth extraction Nausea and vomiting after administration of anesthetic agent Single episode with initial bunionectomy Status post total right knee replacement Past Anesthesia History No Family Hx of Anesthesia Complications and Other (Awareness ("could hear everything") during Right TKA) History of PONV No Hx of Motion Sickness and History of PONV Social History Smoking Status: Former smoker tobacco type: cigarettes Do You Dip or Chew Tobacco: No Smoking End Date: Quit 2005 Hx Alcohol Use: No Hx Substance Use: No substance use type: does not use Review of Systems Patient denies chest pain, shortness of breath, dyspnea on exertion, fever, chills, cough, wheezing, palpitations. Physical Exam Vital Signs VITALS BP 126/75 P 67 TEMP 98.3 SP02 96%RA RESP 18 PHYSICAL Full cervical extension range of motion. Full TMJ range of motion. TMD 3.5 finger breaths Mallampati Score 2 Dentition: intact, + several caps Lungs: clear throughout to auscultation Cardiac: regular rate and rhythm, no murmurs noted Spine: normal Carotid arteries: negative bruit Extremities: no edema Lab Results Anesthesia Preop Results Results Anesthesia Widget: WBC 6.29 K/ul (4.8-10.8) 01/16/22 Hgb 13.6 g/dl (12.0-16.0) 01/16/22 Hct 42.2 % (34.1-44.9) 01/16/22 Plt 215 K/uL (130-400) 01/16/22 Na 139 mmol/L (136-145) 01/16/22 K 4.1 mmol/L (3.5-5.1) 01/16/22 Cl 100 mmol/L (98-107) 01/16/22 CO2 32 mmol/L (21-32) 01/16/22 BUN 15 mg/dl (6-23) 01/16/22 Creat 0.55 mg/dl (0.6-1.2) L 01/16/22 Glucose Level 82 mg/dl (70-99(Fasting)) 01/16/22 PT 10.5 Seconds (9.0-12.0) 01/16/22 PTT 29.0 Seconds (21.0-31.0) 01/16/22 INR 1.0 (0.9-1.1) 01/16/22 Blood Type A Positive 01/16/22 Antibody Screen NEGATIVE 01/16/22 Testing Electrocardiogram Date: 01/16/22 NSR with sinus arrhythmia at 67bpm. Chest X-Ray Date: 01/16/22 FINDINGS: Cardiomediastinal and hilar silhouettes are within normal limits. No pneumothorax, pleural effusion, airspace consolidation or overt pulmonary edema. Degenerative changes of the shoulders and spine. Dextroscoliosis of the thoracolumbar junction. IMPRESSION: No acute process. COVID-19 Risk Screen Screening Information COVID-19 Screen Date: 01/16/22 Exposure 21 Days Family/Household +COVID Last 21 Days: No Exposure 10 Days Any COVID Exposure Last 10 Days: No Symptoms Last 10 Days Experienced COVID Sx Last 10 Days: No + COVID 0-90 Days COVID + in Last 0-90 Days: No
--- NOTE | 2022-02-17 17:21 | History and Physical Report ---
CHIEF COMPLAINT: Persistent left knee pain and discomfort. HISTORY OF PRESENT ILLNESS: The patient is a 76-year-old female who is well known to me from [facility] her knees for arthritis over many years. She had a long history of knee pain and discomfort and acosta d her right knee replaced 3 years ago. She has done well from this. She has had a long history of l eft knee pain. She describes it has gotten worse over the past several years. She has been through extensive conservative treatment, which became less successful over time. The shots helped only for a couple of weeks. She would like to have her left knee fixed. PAST MEDICAL HISTORY: Significant for: 1. Hypertension. 2. Elevated cholesterol. 3. Mild obesity. 4. Low back pain/sciatica. PAST SURGICAL HISTORY: Includes: 1. Right knee replacement done on 03/05/2019. 2. Left knee arthroscopy. 3. Right knee arthroscopy. 4. Bilateral BSO. 5. Breast surgery. 6. Bilateral bunion surgery. 7. Hysterectomy. 8. Tonsillectomy. 9. Oral surgery. ALLERGIES: ADHESIVE TAPE, PENICILLIN, WHICH CAUSES SWELLING AND IODINE, WHICH CAUSES BLISTERING. CURRENT MEDICATIONS: Includes: 1. Vitamin C. 2. Calcium carbonate. 3. Citalopram. 4. Estradiol. 5. Glucosamine. 6. Lisinopril. 7. Loratadine. 8. Meloxicam. 9. Multivitamin. 10. Timolol eye drops. 11. Travoprost eye drops. 12. Trazodone. 13. Turmeric root. 14. Vitamin E. SOCIAL HISTORY: A 76-year-old female. She is . Does not smoke. FAMILY HISTORY: Noncontributory. REVIEW OF SYSTEMS: Negative for diabetes, neurologic problem, vascular problems or bleeding disorder s. No chest pain or shortness of breath. No history of DVT or PE. No known bleeding problems. PHYSICAL EXAMINATION: GENERAL: Shows a pleasant middle-aged female, appears to be in pretty good health. HEENT: Benign. NECK: Supple. No lymphadenopathy. LUNGS: Clear to auscultation. HEART: Regular rate and rhythm. ABDOMEN: Soft, nontender, nondistended. EXTREMITIES: Grossly neurovascularly intact except as follows. Examination of the left knee ____ patient walks independently. She has got slight varus alignment to her knee. She has got bony hypertrophy medially. Small knee effusion. Range of motion about 5-120 at best. No instability. No pain with hip motion. Examination of the right knee reveals a well-he aled incision. She has got anatomic alignment. No knee effusion. Range of motion is 0 to 120. X-RAYS: X-rays of the left knee are reviewed. It shows advanced left knee degenerative joint diseas e. She has got complete loss of medial joint space. She has subchondral sclerosis. She has got sma ll osteophytes, particularly medially. ASSESSMENT: A 76-year-old female 3 years out from a right knee replacement with multiple medical com orbidities including hypertension, elevated cholesterol, obesity and sciatica with advanced left knee degenerative joint disease. She has failed conservative treatment and would like to have her left k nee replaced. PLAN: We are going to take her to the operating room and do a left total knee replacement. The risk s and benefits of this procedure were explained to the patient and include, but not limited to DVT, P E, , infection, neurological injury, vascular injury, bleeding problem, pain, limited range of m otion, stiffness, failure to relieve her symptoms, incomplete relief of symptoms, need for further andrews rgery in the future, etc. The patient understands and desires to proceed. Informed consent was obta ined. We used Dilaudid for p.o. pain medicine last time and we will likely do the same thing. She is hopin g for two-night stay in the hospital due to her 's suboptimal caring skills. We will see her back two weeks postop. Job ID: [id number]
[2022-02-21] MEDS ORDERED: FAMOTIDINE 20 MG TAB PO SCH (06:00)
[2022-02-21] MEDS ORDERED: LR 60ML/HR IV SCH (06:00)
[2022-02-21] MEDS ORDERED: TRANEXAMIC ACID 1,000 MG **IV Intra-op IV SCH (06:00)
[2022-02-21] MEDS ORDERED: METOCLOPRAMIDE HCL 10 MG TABLET PO SCH (06:00)
[2022-02-21] MEDS ORDERED: LR 500ML BOLUS, THEN 15ML/HR IV SCH (06:00)
[2022-02-21] MEDS ORDERED: BUPIVACAINE LIPOSOME/PF 266 MG, BUPIVACAINE/EPINEPHRINE 50 ML, SODIUM CHLORIDE 0.9% 30 ... INFIL SCH (06:00)
[2022-02-21] MEDS ORDERED: CeleBREX 200 MG CAP PO SCH (06:00)
[2022-02-21] MEDS ORDERED: ACETAMINOPHEN 500 MG TAB PO SCH (06:00)
[2022-02-21] MEDS: VANCOMYCIN HCL 1,250 MG in SODIUM CHLORIDE 0.9% 250 ML IV SCH ×2 (06:10→06:34)
[2022-02-21] MEDS ORDERED: ROPIVACAINE 0.5% 5 MG/ML 30 ML VIAL ONE (06:33)
[2022-02-21] MEDS ORDERED: BUPIVACAINE 0.5 % 5 MG/1 ML PF 10ML VIAL ONE (06:33)
--- NOTE | 2022-02-21 07:03 | History & Physical Bridge Note ---
Date of Service February 21, 2022 History & Physical Bridge Note I have examined the patient, reviewed the History & Physical and in the interval since the performance of the History & Physical I have noted the following changes of clinical significance: no changes noted
[2022-02-21] MEDS ORDERED: MIDAZOLAM HCL 1 MG/ML 2ML VIAL ONE (07:36)
[2022-02-21] MEDS ORDERED: fentaNYL citrate 100 MCG/2 ML VIAL ONE (07:36)
[2022-02-21] MEDS ORDERED: ONDANSETRON INJ 2 MG/ML 2 ML VIAL ONE (07:37)
[2022-02-21] MEDS ORDERED: LIDOCAINE 2% MPF LOCAL 5 ML VIAL INFIL ONE (07:37)
[2022-02-21] MEDS ORDERED: PROPOFOL IV EMULSION 10 MG/ML 20 ML VIAL IV ONE (07:37)
[2022-02-21] MEDS ORDERED: BUPIVACAINE 0.25% 30 ML VIAL ONE ×2 (09:17→09:21)
[2022-02-21] MEDS ORDERED: SODIUM CHLORIDE 0.9% INJ 10 ML VIAL ONE (09:17)
[2022-02-21] MEDS ORDERED: BUPIVACAINE LIPOSOME 1.3% 266 MG/20 ML VIAL ONE (09:17)
[2022-02-21] MEDS ORDERED: BUPIVACAINE/EPINEPHRINE 0.25% 1:200,000 30 ML VIAL ONE (09:21)
[2022-02-21] MEDS ORDERED: EPINEPHrine INJ 1 MG/ML AMP ONE (09:21)
[2022-02-21] MEDS ORDERED: SODIUM CHLORIDE 0.9% PF 50 ML VIAL ONE (09:21)
[2022-02-21] MEDS ORDERED: PHENYLEPHRINE HCL 10 MG/ML VIAL ONE (10:10)
[2022-02-21] MEDS ORDERED: ONDANSETRON INJ 2 MG/ML 2 ML VIAL IV PRN ×2 (10:38→12:31)
[2022-02-21] MEDS ORDERED: HYDROmorphone INJ 2 MG/ML SYR/VIAL IV PRN (10:38)
[2022-02-21] MEDS ORDERED: fentaNYL citrate 100 MCG/2 ML VIAL IV PRN (10:38)
[2022-02-21] MEDS ORDERED: ATROPINE SULFATE 0.1 MG/ML 10ML SYR IV PRN (10:38)
[2022-02-21] MEDS ORDERED: ePHEDrine sulfate 50 MG/ML AMP IV PRN (10:38)
--- NOTE | 2022-02-21 11:27 | Operative Report ---
PG Post Operative Report Pre & Post Diagnosis Operation Date: 02/21/22 08:50 Pre-Op Diagnosis: Left Knee Degenerative Joint Disease Post-Op Diagnosis: Left Knee Degenerative Joint Disease I identified the patient and participated in the time-out.: Yes Procedure Operation Date: 02/21/22 08:50 Actual Procedures p Left Total Knee Arthroplasty, Cemented(Left) - Claude Clark MD Surgeon Claude Clark MD Human Resources Partner Stanley Mcgovern PA-C Estimated Blood Loss 50 Findings Consistent with Post-Op Diagnosis Operative findings were advanced left knee medial and patellofemoral compartment arthritis. She had some spotty grade 4 changes laterally. She had a varus deformity to her knee with osteophytes primarily medially. Moderate-sized joint effusion. Fluids 700 cc Specimens Left knee sent for pathology Drains None Anesthesia Type Spinal MAC Indications Patient is 76-year-old female has had a long history of bilateral knee pain discomfort. She been treated extensively over the years. She did have her right knee replaced back in 2019 and is done well from this. She continued be limited by left knee pain discomfort. She is now elected proceed with a left total knee arthroplasty. Description of Procedure Operative implants consist of: 1 Biomet Vanguard size 65 left posterior stabilized femoral component. 2. Biomet size 71 tibial tray. 3. 10 mm posterior stabilized polyethylene insert. 4. 28 x 8 all Paller patella. The patient was taken to the operating, identified, and placed on the operating table supine position protectors were properly padded. IV antibiotics tried by anesthesia team. A spinal anesthetic and abductor canal block had provided in the holding area. A Feng catheter was placed in sterile fashion. A left thigh tent was then placed in the left lower extremities then prepped and draped in usual sterile fashion. The left leg was elevated exsanguinated with use of an Esmarch and the tourniquet was set at 300 mmHg. An anterior posterior left knee was then performed through a longitudinal incision centered over the patella. Sharp dissection was carried through subcutaneous tissue down the extensor mechanism. A medial parapatellar arthrotomy incision was made. Some subperiosteal dissection was carried out medially. The fat pad was resected from Neath patella tendon. Lateral patellofemoral ligament was released. Patella subluxated laterally and the knee was flexed. The osteophytes taken off distal femur. The ACL and PCL were then released from distal femur the tibia subluxated anteriorly. External tibial alignment jig was then placed in the interface the tibia and adjusted 14 mm medially. Proximal tibial cut was made to remove 1 mm bone from most deficient aspect medial tibial plateau. The tibia then sized to a size 71. Attention drawn the femur. The distal femur examined the sharp drill. Intramedullary canal was suction. A left 5 degree valgus cutting guide was placed. Distal femoral cutting block was pinned in place. Distal femoral cut was made to take an additional 3 mm bone off distal femur. Femur was then sized to a size 65. The AP cutting block was pinned parallel to the epicondylar axis which was 5 degrees of external rotation. The anterior cut, anterior chamfer, posterior cut, posterior chamfer cuts were made. The box cutting guide was placed in just slight lateral box cut was made. The knee was flexed. The remnants of the medial and lateral menisci were excised. The osteophytes were taken off the posterior aspect of the femur. Trial femoral component was placed. The tibial tray was pinned in maximum external rotation and the drill and stem punch used to create defect in proximal tibia for the tibial tray. The knee was then trialed and the 10 mm insert fit most appropriately. Attention drawn the patella. Patella was cleaned of all soft tissues. Patella thickness measured 22 mm in thickness. Was cut down to 14 mm. It was sized to a size 28 patella. The lug holes were drilled for the 28 patella. The lateral osteophyte was removed. Patella button was placed. Knee was taken through range of motion patella tracked nicely with no thumbs test. Attention drawn to placing permanent components. All trial components were removed. Bone plug was placed in the distal femur limit blood loss. Double batch Palacos G cement was mixed. A Biomet Vanguard size 65 left posterior stabilized femoral component, size 71 tibial tray, a 10 mm posterior stabilized polyethylene insert, and a 28 x 8 all Paller patella then cemented in place. New spreadout into full extension total cement hardened. Final cement check was then performed. The pericapsular tissues were injected with total 100 cc of combination of 20 cc of Exparel, 30 cc normal saline, 50 cc of quarter percent Marcaine with epinephrine. Patient did receive 1 g tranexamic acid. The tourniquet was let down for final tourniquet time of 55 minutes. Hemostasis assured with electrocautery. Extensor mechanism then closed with combination 1 PDS suture #1 Vicryl suture in a [id number] fashion. Extensor mechanism checked found to be intact the subcutaneous tissue then closed with 2 Dexon suture in buried fashion skin was closed skin shaina. Leg was then cleaned and dried and a sterile dressing composed of a Xeroform, 4 x 4's, sterile ABD pad, sterile cast padding, Nimesh bandage were applied. Patient then transferred to the recovery room in stable condition. The patient tolerated the procedure well and there were no complications. Stanley Mcgovern, my physician assistant strength coach, was present for the entire procedure. His assistance was essential and required for appropriate patient positioning, prepping and draping, surgical exposure, performing the technical details of the operation, placement the implants, closure of the wound, and placement of the sterile bandage. I attest to the content of the Intraoperative Record and any orders documented therein. Any exceptions are noted below.
[2022-02-21] MEDS ORDERED: ALUMINUM/MAGNESIUM SUSP 30 ML UDC PO PRN (12:31)
[2022-02-21] MEDS ORDERED: FLUTICASONE PROPIONATE NA SPR 16 GM BTL NAE PRN (12:31)
[2022-02-21] MEDS ORDERED: HYDROmorphone INJ 0.5 MG/0.5 ML SYR IV PRN (12:31)
[2022-02-21] MEDS ORDERED: METOCLOPRAMIDE HCL INJ 5 MG/ML 2 ML VIAL IV PRN (12:31)
[2022-02-21] MEDS ORDERED: NALOXONE HCL 0.4 MG/1 ML VIAL/CARP IV PRN (12:31)
[2022-02-21] MEDS ORDERED: bisacodyL 10 MG SUPP PR PRN (12:31)
[2022-02-21] MEDS ORDERED: VANCOMYCIN CONSULT ACTIVE PRN (12:31)
[2022-02-21] MEDS ORDERED: MAGNESIUM HYDROXIDE SUSP 30 ML UDC PO PRN (12:31)
--- NOTE | 2022-02-21 13:03 | Anesthesiology Progress Note ---
Date of Service February 21, 2022 Anesthesia Post Procedure Vital Signs Vital Signs: Temp Pulse Pulse Resp BP Pulse Ox O2 Del Method 02/21/22 13:02 36.4 C L 61 16 113/67 94 Room Air 02/21/22 12:31 36.9 C 69 16 110/68 95 Room Air 02/21/22 12:15 63 17 109/66 93 Room Air 02/21/22 12:00 65 17 105/59 L 92 Room Air 02/21/22 11:45 65 16 112/59 L 93 Room Air 02/21/22 11:30 36.4 C L 67 20 109/60 96 Room Air 02/21/22 11:20 66 18 120/74 100 Oxymask 02/21/22 11:10 36.2 C L 73 14 130/69 100 Oxymask 02/21/22 06:19 36.7 C 75 18 171/83 H 95 Room Air O2 Flow Rate 02/21/22 13:02 02/21/22 12:31 02/21/22 12:15 02/21/22 12:00 02/21/22 11:45 02/21/22 11:30 02/21/22 11:20 10 02/21/22 11:10 10 02/21/22 06:19 Pain Intensity Left Knee: Pain Intensity: 0 Transfer of Care Handoff Completed per policy Notes Mental Status: alert / awake / arousable and participated in evaluation Patient Amnestic to Procedure: Yes Nausea / Vomiting: adequately controlled Pain: adequately controlled Airway Patency, RR, SpO2: stable & adequate BP & HR: stable & adequate Hydration State: stable & adequate Anesthetic Complications: no major complications apparent and Pt Satisfied with anesthetic care
[2022-02-21] MEDS: SODIUM CHLORIDE 0.9% 1000ML 1,000 ML IV SCH ×2 (13:07→21:46)
[2022-02-21] MEDS: KETOROLAC TROMETHAMINE 15 MG/ML VIAL IV SCH ×2 (13:50→20:12)
[2022-02-21] MEDS: ACETAMINOPHEN 500 MG TAB PO SCH ×2 (13:50→21:43)
--- NOTE | 2022-02-21 14:02 | XRay Report ---
XR knee LT 1 or 2V routine CLINICAL HISTORY: Postoperative evaluation. COMPARISON: Knee radiographs January 16, 2022. FINDINGS: Alignment of the total left knee arthroplasty is anatomic. There is no periprosthetic frac ture or unexpected radiopaque foreign body. There are skin shaina. IMPRESSION: Expected findings following total left knee arthroplasty. ACT 112: Negative or not required by law. Electronically signed by: Javan Eckert M.D. 02/21/2022 2:00 PM
[2022-02-21] MEDS: HYDROmorphone HCL 2 MG TAB PO PRN (15:29)
[2022-02-21] MEDS: ASCORBIC ACID 500 MG TAB PO SCH (16:59)
[2022-02-21] MEDS ORDERED: TRANEXAMIC ACID / 0.7% NACL 1,000 MG/100 ML BAG IV SCH (17:15)
[2022-02-21] MEDS ORDERED: VANCOMYCIN HCL 1,250 MG in SODIUM CHLORIDE 0.9% 250 ML IV SCH (19:00)
[2022-02-21] MEDS: LORATADINE 10 MG TAB PO SCH (20:12)
[2022-02-21] MEDS: SENNA 8.6 MG TAB PO SCH (20:13)
[2022-02-21] MEDS: CITALOPRAM 20 MG TAB PO SCH (20:13)
[2022-02-21] MEDS: CALCIUM 600MG + VIT D 400 IU TAB PO SCH (20:13)
[2022-02-21] MEDS: ASPIRIN 81 MG ECTAB PO SCH (20:14)
[2022-02-21] MEDS: traZODone HCL 50 MG TAB PO SCH (20:14)
[2022-02-21] MEDS: TRAVOPROST Z 0.004% OPH SOLN 2.5 ML BTL OPB SCH (20:14)
[2022-02-21] MEDS: DOCUSATE SODIUM 100 MG CAP PO SCH (20:16)
[2022-02-21] MEDS ORDERED: DOCUSATE SODIUM/SENNA 50/8.6MG TAB PO SCH (21:00)
[2022-02-21] MEDS ORDERED: estradioL 1 MG TAB PO SCH (21:00)
[2022-02-22] MEDS: KETOROLAC TROMETHAMINE 15 MG/ML VIAL IV SCH ×4 (02:05→21:17)
[2022-02-22 06:07] LABS: Hematocrit (blood only) 34.4 % (34.1-44.9); Hemoglobin 11.1 g/dl (12.0-16.0); Mean Corpuscular Hemoglobin 28.8 pg (25.0-34.0); Mean Corpuscular Hgb Conc 32.3 g/dL (32.0-36.0); Mean Corpuscular Volume 89.4 fL (80.0-100.0); Mean Platelet Volume 10.1 fL (9.4-12.3); Platelet Count 162 K/uL (130-400); RDW Coefficient of Variation 13.9 % (11.5-14.5); RDW Standard Deviation 45.4 fL (36.4-46.3); Red Blood Count 3.85 M/uL (3.93-5.22); White Blood Count 8.22 K/ul (4.8-10.8)
[2022-02-22] MEDS: ACETAMINOPHEN 500 MG TAB PO SCH ×3 (06:08→21:20)
[2022-02-22] MEDS: HYDROmorphone HCL 2 MG TAB PO PRN ×2 (06:26→17:51)
[2022-02-22 06:58] LABS: BUN Creatinine Ratio 18.6 (10-20); Calcium 8.4 mg/dl (8.5-10.1); Creatinine Clr Calc Pharmacy 78.1 ml/min; Est GFR (African American) 98.9 ml/min; Est GFR (Non-African American) 85.4 ml/min; Potassium 4.4 mmol/L (3.5-5.1)
[2022-02-22] MEDS ORDERED: dexAMETHasone 10 MG in SYRINGE 0 ML IV SCH (08:00)
[2022-02-22] MEDS: ASCORBIC ACID 500 MG TAB PO SCH ×2 (08:07→17:46)
[2022-02-22] MEDS: MULTIVITAMIN TAB PO SCH (08:08)
[2022-02-22] MEDS: lisinopril 20 MG TAB PO SCH (08:08)
[2022-02-22] MEDS: ASPIRIN 81 MG ECTAB PO SCH ×2 (08:08→21:17)
[2022-02-22] MEDS: DOCUSATE SODIUM 100 MG CAP PO SCH ×2 (08:08→21:20)
[2022-02-22] MEDS: TIMOLOL MALEATE 0.5% OP SOLN 5 ML BTL OPR SCH (08:08)
[2022-02-22] MEDS: TOCOPHERYL, DL-ALPHA 400 UNITS 180 MG CAP PO SCH (08:08)
[2022-02-22] MEDS ORDERED: [UNRECOGNIZED DRUG - OTHER] PO SCH (09:00)
[2022-02-22] MEDS ORDERED: ASCORBIC ACID PO SCH (09:00)
[2022-02-22] MEDS ORDERED: NON-FORMULARY MEDICATION (Turmeric Root Extract 500 mg Capsule) PO SCH (09:00)
[2022-02-22] MEDS ORDERED: NON-FORMULARY MEDICATION (Glucosamine-Chondroitin [Osteo Bi-Flex] 250-200 mg Tablet) PO SCH (09:00)
[2022-02-22] MEDS ORDERED: NON-FORMULARY MEDICATION (Multivitamin Tablet) PO SCH (09:00)
--- NOTE | 2022-02-22 13:44 | Progress Notes ---
DATE OF SERVICE: 02/22/2022. SUBJECTIVE: A 76-year-old female postoperative day 1 from a left knee replacement. She is doing pre tty well. Having a moderate amount of pain. Therapy went pretty well, but painful. No chest pain o r shortness of breath. Not feeling dizzy or lightheaded. She is hoping to stay in the hospital for another day. OBJECTIVE: VITAL SIGNS: Temperature 36.9. Vital signs are stable. GENERAL: Shows a pleasant middle-aged female. She is lying in bed, looks pretty comfortable current ly. I had to wake her up. LUNGS: Clear to auscultation. HEART: Regular rate and rhythm. ABDOMEN: Soft, nontender, nondistended. EXTREMITIES: Grossly neurovascularly intact except as follows. Examination of the left leg reveals the leg to be well aligned. Dressing is clean, dry and intact. She can dorsiflex and plantarflex her foot appropriately. She is neurologically intact. LABORATORY DATA: Hemoglobin 11.1. Hematocrit 34.4. Electrolytes are stable. ASSESSMENT: A 76-year-old female postoperative day 1 from a left knee replacement, doing reasonably well. A moderate amount of pain, but nothing out of the ordinary. She is neurologically intact. Sh juan is hoping to stay for 1 more day. PLAN: 1. DVT prophylaxis includes thigh-high TEDs, SCDs, and aspirin twice a day. 2. PT/OT, weightbear as tolerated. Left total knee protocol. 3. Pain control, doing okay with current pain regimen. She has been on narcotics preoperatively so pain management may be a bit more difficult. 4. Disposition: Plan to discharge home with home health hopefully tomorrow if she does okay in ther apy. Job ID: [id number]
[2022-02-22] MEDS: TRAVOPROST Z 0.004% OPH SOLN 2.5 ML BTL OPB SCH (21:16)
[2022-02-22] MEDS: LORATADINE 10 MG TAB PO SCH (21:18)
[2022-02-22] MEDS: SENNA 8.6 MG TAB PO SCH (21:18)
[2022-02-22] MEDS: traZODone HCL 50 MG TAB PO SCH (21:18)
[2022-02-22] MEDS: CITALOPRAM 20 MG TAB PO SCH (21:18)
[2022-02-22] MEDS: CALCIUM 600MG + VIT D 400 IU TAB PO SCH (21:19)
[2022-02-23] MEDS: KETOROLAC TROMETHAMINE 15 MG/ML VIAL IV SCH ×2 (02:18→07:33)
[2022-02-23] MEDS: ACETAMINOPHEN 500 MG TAB PO SCH (06:13)
[2022-02-23] MEDS: lisinopril 20 MG TAB PO SCH (07:35)
[2022-02-23] MEDS: DOCUSATE SODIUM 100 MG CAP PO SCH (07:35)
[2022-02-23] MEDS: MULTIVITAMIN TAB PO SCH (07:35)
[2022-02-23] MEDS: TOCOPHERYL, DL-ALPHA 400 UNITS 180 MG CAP PO SCH (07:36)
[2022-02-23] MEDS: ASPIRIN 81 MG ECTAB PO SCH (07:36)
[2022-02-23] MEDS: ASCORBIC ACID 500 MG TAB PO SCH (07:36)
[2022-02-23] MEDS: TIMOLOL MALEATE 0.5% OP SOLN 5 ML BTL OPR SCH (07:37)
--- NOTE | 2022-02-23 07:44 | Progress Notes ---
DATE OF SERVICE: 02/23/2022. SUBJECTIVE: A 76-year-old postoperative day 2 from a left knee replacement. She is doing pret ty well. Pain is controlled. No chest pain or shortness of breath. Not feeling dizzy or lightheade d. OBJECTIVE: VITAL SIGNS: Temperature is 36.8. Vital signs are stable. GENERAL: Shows a pleasant middle-aged female. She is lying in bed and looks comfortable this artemnin g. EXTREMITIES: Examination of the left leg reveals the incision to be clean, dry and intact. No drain age. She can do a straight leg raise. Some moderate swelling. She can dorsiflex and plantarflex he r foot appropriately. ASSESSMENT: A 76-year-old female postoperative day 2 from a left knee replacement, doing pretty well. Pain is co ntrolled. She is neurologically intact. PLAN: 1. DVT prophylaxis includes thigh-high TEDs, SCDs, and aspirin twice a day. 2. PT, OT, weightbear as tolerated. Left total knee protocol. 3. Pain control, doing okay with current pain regimen. 4. Disposition: Plan to discharge to home with some home health after therapy today. Job ID: [id number]
--- NOTE | 2022-02-25 15:55 | Discharge Summary ---
Date of Service February 25, 2022 Discharge Data Procedures Performed Operation Date: 02/21/22 08:50 Actual Procedures p Left Total Knee Arthroplasty, Cemented(Left) - Claude Clark MD Hospital Course (1) Status post total left knee replacement: This is a 76 year old patient admitted on 02/21/22 and underwent total knee arthroplasty. She tolerated the procedure well and there were no complications. Transferred to the PACU post op and later to the orthopedic floor for further care. She was given vancomycin for antibiotic prophylaxis. She was also given YAMILA stockings, SCDs, and aspirin for DVT prophylaxis. Hemoglobin, hematocrit, and vital signs were monitored during her hospital stay and remained stable. Did not require any blood transfusions. There were no complications during her ho spital stay. By post op day #2 the patient was tolerating a regular diet, pain was reasonably controlled with oral pain medicine, and she was participating in physical therapy. On post op day #2 the patient was discharged home and set up with home health care. She was given printed discharge instructions including prescriptions for extra strength tylenol, aspirin, cefadroxil, zofran, senokot, ketorolac, and hydromorphone. Continue physical therapy, weight bearing as tolerated. Continue YAMILA stockings. Follow up approximately 2 weeks post op or sooner if there are problems or concerns. Coding Level of Care Code None Diagnoses Status post total left knee replacement Z96.652
== END 2022-02-23 13:54 | disposition home health service (06) ==
LOC: ASU 05:46 → 3E 05:46